=== PATIENT | male | born 1980 | race Caucasian/White ===

== ENCOUNTER → 2017-01-21 | Outpatient (CLI) | payer BC ==
--- NOTE | 2017-01-21 15:39 | DIAGNOSTIC IMAGING REPORT ---
SI JOINTS 3 OR MORE VIEWS CLINICAL HISTORY: M25.469 Effusion of knee [id number] Symmetrical polyarthritisL4 COMPARISON STUDY: No previous studies for comparison. FINDINGS: No fractures are visualized. There is no evidence of SI joint fusion. No erosive changes are visualized. The oblique view of the right SI joint is suboptimally positioned. IMPRESSION: No conventional radiographic evidence of an inflammatory sacroiliitis Electronically signed by: Cezar Graham M.D. 01/21/2017 3:38 PM Dictated Date/Time: 01/21/2017 3:37 PM
--- NOTE | 2017-01-21 15:41 | DIAGNOSTIC IMAGING REPORT ---
R KNEE 1 OR 2 VIEWS ROUTINE CLINICAL HISTORY: M25.469 Effusion of knee [id number] Symmetrical polyarthritisL4 pain COMPARISON: None. DISCUSSION: Mild degenerative narrowing medial joint compartment. Remaining joint compartments are well preserved. No significant soft tissue calcification. No significant joint effusion. There is no evidence for soft tissue swelling. IMPRESSION: Mild degenerative change medial joint compartment. Otherwise negative study. The above report was generated using voice recognition software. It may contain grammatical, syntax or spelling errors. Electronically signed by: George Herrera M.D. 01/21/2017 3:40 PM Dictated Date/Time: 01/21/2017 3:40 PM
--- NOTE | 2017-01-21 15:42 | DIAGNOSTIC IMAGING REPORT ---
L HAND MIN 3 VIEWS ROUTINE CLINICAL HISTORY: M25.469 Effusion of knee [id number] Symmetrical polyarthritisL4 LEFT HAND PAIN COMPARISON: None. DISCUSSION: No acute fractures or dislocations are visualized. There is no erosive disease. There is subtle enlargement of the distal aspect of the middle phalanx the fourth digit. This is likely either developmental or related to old trauma. IMPRESSION: 1. No acute fractures or subluxations 2. No evidence of erosive disease Electronically signed by: Cezar Graham M.D. 01/21/2017 3:40 PM Dictated Date/Time: 01/21/2017 3:39 PM
[2017-01-21 16:04] LABS: RHEUMATOID FACTOR < 10.0 U/mL (0-15); TOTAL IRON BINDING CAPACITY 365 mcg/dl (250-450)
== END | disposition home or self-care (01) ==
LOC: C.RAD1850 14:39
PROVIDERS: ATTEND Internal Medicine Rheumatology
DX: L40.50 Arthropathic psoriasis, unspecified (principal); M13.80 Other specified arthritis, unspecified site; M25.469 Effusion, unspecified knee; M25.561 Pain in right knee